=== PATIENT | female | born 1950 | race Caucasian/White ===

== ENCOUNTER → 2020-12-12 | Outpatient (CLI) | payer MEDICARE, OTHER ==
[~2020-12-12] MED LIST: ASPI-496 PO; ASPI81TA45 PO; BACL-19 PO; BUPR150T22 PO; CALC1TAB3 PO; CYCL1DRO EACHEYE; ESTR1PAT10 TD; FLUT15.845 NS; HYDR-2214 PO; HYDR1TAB53 PO; MAGN400T36 PO; MONT10TA17 PO; MULT-658 PO; NORT10CA PO; OMEG-76 PO; OMEP-110 PO; TRAM50TA2 PO
[2020-12-12 16:21] LABS: MICROSCOPIC NOT IND
[2020-12-12 16:25] LABS: BASOPHILS % (AUTO) 1 % (0-1); EOSINOPHILS % (AUTO) 2 % (1-7); LYMPHOCYTES % (AUTO) 27 % (22-44); MEAN CORPUSCULAR HEMOGLOBIN 30.1 pg (27.0-34.8); MEAN CORPUSCULAR HGB CONC 34.2 g/dL (32.4-35.8); MEAN PLATELET VOLUME 7.7 fL (7.4-10.4); MONOCYTES % (AUTO) 6 % (2-9); NEUTROPHILS % (AUTO) 65 % (42-75); PLATELET COUNT 236 x10^3/uL (130-400); RED BLOOD COUNT 4.74 x10^6/uL (3.82-5.3); RED CELL DISTRIBUTION WIDTH 13.9 % (9.6-15.2)
[2020-12-12 16:26] LABS: MD NO
[2020-12-12 16:32] LABS: ANION GAP 6 mmol/L (5-15); CHLORIDE 106 mmol/L (98-107); CREATININE 0.73 mg/dL (0.55-1.02)
[2020-12-12 16:37] LABS: INTERNATIONAL NORMALIZED RATIO 0.98 (0.93-1.1); PROTHROMBIN TIME 10.5 Seconds (9.6-11.5)
== END | disposition home or self-care (01) ==
LOC: STAR 14:31
PROVIDERS: ATTEND Neurological Surgery
DX: Z01.818 Encounter for other preprocedural examination (principal); M47.22 Other spondylosis with radiculopathy, cervical region; I44.7 Left bundle-branch block, unspecified
CPT/HCPCS: 36415; 71046; 80048; 81003; 85025; 85610; 85730; 93005

== ENCOUNTER 2020-12-16 14:18 | Outpatient (CLI) | payer MEDICARE, OTHER ==
[2020-12-22] MEDS ORDERED: HYDR-2214 PO (08:33)
[2020-12-22] MEDS ORDERED: METH-639 PO (08:33)
== END 2020-12-16 23:59 | disposition home or self-care (01) ==
LOC: STAR 14:18
PROVIDERS: ATTEND Family Medicine
DX: Z02.9 Encounter for administrative examinations, unspecified (principal)